=== PATIENT | male | born 1970 | race Caucasian/White ===

== ENCOUNTER 2016-12-25 08:16 | Emergency (ER) | payer MEDICARE, MEDICAID ==
[2016-12-25 08:31] VITALS: BP 131/73
--- NOTE | 2016-12-25 08:57 | UC ---
Respiratory Complaint HPI - HPI Summary HPI Summary: 46 yo male presents with one wk hx of cough/post nasal drip/sinus pressure and fatigue no f/c no CP or SOB no n/v/d - History of Current Complaint Chief Complaint: UCRespiratory Stated Complaint: COUGH Time Seen by Provider: 12/25/16 08:45 Hx Obtained From: Patient Onset/Duration: Gradual Onset, Lasting Days Timing: Constant Severity Initially: Mild Severity Currently: Moderate Pain Intensity: 2 Pain Scale Used: 0-10 Numeric Character: Cough: Nonproductive Aggravating Factors: Nothing Alleviating Factors: Nothing Associated Signs And Symptoms: Positive: Nasal Congestion, Sinus Discomfort - Allergies/Home Medications Allergies/Adverse Reactions: Allergies Allergy/AdvReac Type Severity Reaction Status Date / Time Loratadine [From Claritin] Allergy Severe Swelling Verified 12/05/15 16:46 Of Face,Lips,& Throat Home Medications: Home Medications celeCOXIB CAP* [Celebrex CAP*] 200 mg PO DAILY 12/25/16 [History Confirmed 12/25] PMH/Surg Hx/FS Hx/Imm Hx Previously Healthy: Yes - lupus/cerbral palsy Other History Of: Negative For: HIV, Hepatitis B, Hepatitis C, Anticoagulant Therapy - Surgical History Surgical History: Yes Surgery Procedure, Year, and Place: Leg surgery-strecthing hamstrings - Family History Known Family History: Positive: None, Hypertension, Diabetes - Social History Alcohol Use: None Substance Use Type: None Smoking Status (MU): Never Smoked Tobacco - Immunization History Most Recent Influenza Vaccination: Most Recent Tetanus Shot: 2010 Review of Systems Constitutional: Fatigue Skin: Negative Eyes: Negative ENT: Nasal Discharge, Sinus Congestion, Sinus Pain/Tenderness Respiratory: Cough Cardiovascular: Negative Gastrointestinal: Negative Genitourinary: Negative Motor: Negative Neurovascular: Negative Musculoskeletal: Negative Neurological: Negative Psychological: Negative Is Patient Immunocompromised?: No All Other Systems Reviewed And Are Negative: Yes Physical Exam Triage Information Reviewed: Yes Appearance: Well-Appearing, No Pain Distress, Well-Nourished Vital Signs: Initial Vital Signs Temp 98.1 F 12/25/16 08:26 Pulse 86 12/25/16 08:26 Resp 18 12/25/16 08:26 BP 131/73 12/25/16 08:26 Pulse Ox 98 12/25/16 08:26 Vital Signs Reviewed: Yes Eyes: Positive: Conjunctiva Clear ENT: Positive: Hearing grossly normal, Nasal congestion, Nasal drainage, TM bulging, Hoarse voice, Sinus tenderness, Uvula midline. Negative: TMs normal, TM dull, TM red, Tonsillar swelling, Tonsillar exudate, Muffled voice, Dental tenderness Neck: Positive: Supple, Nontender, No Lymphadenopathy Respiratory: Positive: Lungs clear, Normal breath sounds, No respiratory distress, No accessory muscle use Cardiovascular: Positive: RRR, No Murmur Musculoskeletal: Positive: Other: - using walker/atrophied LE with contractures Neurological: Positive: Alert Psychological Exam: Normal Skin Exam: Normal UC Diagnostic Evaluation - Laboratory O2 Sat by Pulse Oximetry: 98 Respiratory Course/Dx - Differential Dx/Diagnosis Provider Diagnoses: acute sinusitis Discharge - Discharge Plan Condition: Stable Disposition: HOME Prescriptions: Amoxicillin PO (*) [Amoxicillin 875 MG (*)] 875 mg PO BID #20 tab Patient Education Materials: Sinusitis (ED) Referrals: Clem Ang MD [Primary Care Provider] - 5 Days (if not better)
== END 2016-12-25 09:11 | disposition home or self-care (01) ==
LOC: UCEAST 08:16
DX: J01.90 Acute sinusitis, unspecified (principal)
CPT/HCPCS: 99211; G0463

== ENCOUNTER 2017-06-11 15:02 | Emergency (ER) | payer MEDICARE, MEDICAID ==
--- OUTSIDE RECORDS SUMMARY | 2017-06-11 15:20 | XMS REPORT ---
:1970 External Reference #:[id number] Author Organization [employer] Address [address] [address] Phone [phone] Care Team Providers Name Role Phone Clem Ang MD Care Team Information Cnc Mill Operator Unavailable Clem Ang MD Primary Care Physician Unavailable Payers Type Date Identification Numbers Payment Provider Subscriber Medicare Primary Policy Number: [id number] Medicare Gabriel Amezquita PayID: [id number] [address] [place] [address] [facility] Policy Number: [id number] Medicaid Gabriel Amezquita PayID: [id number] [address] [place] [address] Problems Description No Information Family History Date Family Member(s) Problem(s) Comments General Arthritis General GF had autoimmune issues Social History Type Date Description Comments ETOH Use Denies alcohol use Smoking Patient has never smoked Exercise Type/Frequency Exercises rarely Allergies, Adverse Reactions, Alerts Date Description Reaction Status Severity Comments 05/27/2016 Claritin active hives 05/27/2016 Zyrtec active ineffective Medications Medication Date Status Form Strength Qnty SIG Indications Ordering Provider Celebrex Active Capsules 200mg 180cap take one R76.0 Kendell 017 s capsule/tab Lily, let daily M.D. by mouth twice daily as needed for pain, avoid ibuprofen and other nsaids Multi Vitamin Active Tablets 1 a day Unknown 000 Vitamin D-3 Active Capsules 1000Unit 1 by mouth Unknown 000 every day Voltaren Hx Gel 1% 200uni apply 2 R76.0 Kendell 017 - ts grams twice Lily, daily as M.DVirgin[place] 017 needed for pain to the hands Diclofenac [address] 75mg take 1 R76.0 Unknown Sodium 000 - tablet twice a day 017 with food Vital Signs Date Vital Result Comment 05/21/2017 Height 67 inches 5'7" Weight 151.50 lb Heart Rate 82 /min BP Systolic Sitting 114 mmHg BP Diastolic Sitting 72 mmHg Respiratory Rate 14 /min Body Temperature 98.4 F Pain Level 0 BMI (Body Mass Index) 23.7 kg/m2 10/31/2016 Height 67 inches 5'7" Weight 152.00 lb Heart Rate 100 /min BP Systolic Sitting 130 mmHg BP Diastolic Sitting 86 mmHg Respiratory Rate 14 /min BMI (Body Mass Index) 23.8 kg/m2 06/27/2016 Height 67 inches 5'7" Heart Rate 76 /min BP Systolic Sitting 124 mmHg BP Diastolic Sitting 70 mmHg Respiratory Rate 14 /min 05/27/2016 Height 67 inches 5'7" Weight 141.00 lb Heart Rate 82 /min BP Systolic Sitting 121 mmHg BP Diastolic Sitting 71 mmHg Respiratory Rate 14 /min Body Temperature 98.1 F Pain Level 4 BMI (Body Mass Index) 22.1 kg/m2 Results Description No Information Procedures Description No Information Encounters Type Date Location Provider CPT E/M Dx Office Visit 10/31/2016 [facility] Bautista M.D. 76334 M06.4 3:20p Of Lani M17.0 Z79.899 M79.1 Office Visit 06/27/2016 3:20p [facility] Bautista 14617 R76.0 Lani Hunt M25.561 M25.562 M25.552 M25.551 Office Visit 05/27/2016 3:00p [facility] Bautista 33693 R76.0 Lani Hunt M79.1 R20.8 Z86.69 Plan of Care 05/21/2017 - Kendell Bautista M.D.M06.4 Inflammatory [id number] Other retirement (current) drug therapyFollow up:F/u in 1 year or sooner if needed
[2017-06-11 15:24] VITALS: BP 114/74
--- NOTE | 2017-06-11 15:59 | UC ---
Abdominal Pain Male HPI - HPI Summary HPI Summary: PT HERE ACCOMPANIED BY MOM. ONSET OF WATERY DIARRHEA AND VOMITING LAST NIGHT. NO RECENT RAVEL OR NEW FOODS. NO RECENT ANTIBIOTICS OR CHANGE IN MEDS. NO FEVER. HAS HAD SOME MILD SINUS CONGESTION PAST FEW DAYS. APPETITE IS DOWN. IS ABLE TO KEEP DOWN GINGERALE AND GATORADE. - History of Current Complaint Chief Complaint: UCGI Stated Complaint: VOMITING Time Seen by Provider: 06/11/17 15:40 Hx Obtained From: Patient, Family/Tree Surgeon - MOM Onset/Duration: Sudden Onset, Lasting Days - 1 DAY, Still Present Severity Initially: Moderate Severity Currently: Moderate Pain Intensity: 0 Pain Scale Used: 0-10 Numeric Location: Diffuse Radiates: No Character: Cramping Aggravating Factor(s): Food Alleviating Factor(s): Nothing Associated Signs And Symptoms: Positive: Decreased Appetite, Nausea, Vomiting, Diarrhea. Negative: Fever, Cough, Chest Pain, Back Pain, Constipation, Blood in Stool, Urinary Symptoms - Allergies/Home Medications Allergies/Adverse Reactions: Allergies Allergy/AdvReac Type Severity Reaction Status Date / Time loratadine [From Claritin] Allergy Swelling Verified 06/11/17 15:24 Of Face,Lips,& Throat PMH/Surg Hx/FS Hx/Imm Hx - Additional Past Medical History Additional PMH: CEREBRAL PALSY, LUPUS Other History Of: Negative For: HIV, Hepatitis B, Hepatitis C, Anticoagulant Therapy - Surgical History Surgical History: Yes Surgery Procedure, Year, and Place: Leg surgery-strecthing hamstrings - Family History Known Family History: Positive: Hypertension, Diabetes - Social History Alcohol Use: None Substance Use Type: None Smoking Status (MU): Never Smoked Tobacco - Immunization History Most Recent Influenza Vaccination: Most Recent Tetanus Shot: 2010 Review of Systems Constitutional: Negative Respiratory: Negative Cardiovascular: Negative Gastrointestinal: Vomiting, Diarrhea, Nausea Genitourinary: Negative All Other Systems Reviewed And Are Negative: Yes Physical Exam Triage Information Reviewed: Yes Appearance: Well-Appearing, No Pain Distress, Well-Nourished Vital Signs: Initial Vital Signs Temp 99.8 F 06/11/17 15:19 Pulse 115 06/11/17 15:19 Resp 20 06/11/17 15:19 BP 114/74 06/11/17 15:19 Pulse Ox 97 06/11/17 15:19 Vital Signs Reviewed: Yes Eyes: Positive: Conjunctiva Clear ENT: Positive: Hearing grossly normal Neck: Positive: Supple Respiratory Exam: Normal Cardiovascular Exam: Normal Abdomen Description: Positive: Nontender, Soft. Negative: Distended, Guarding Bowel Sounds: Positive: Present Musculoskeletal: Positive: No Edema Neurological: Positive: Alert Psychological: Positive: Normal Response To Family, Age Appropriate Behavior Skin: Negative: rashes Abd Pain Male Course/Dx - Differential Dx/Clinical Impression Provider Diagnoses: ACUTE GASTROENTERITIS Discharge - Sign-Out/Discharge Documenting (check all that apply): Discharge - Discharge Plan Condition: Stable Disposition: HOME Prescriptions: Ondansetron ODT TAB* [Zofran Odt TAB*] 4 mg PO Q6H PRN #20 tab.odt PRN Reason: Nausea/Vomiting Patient Education Materials: Gastroenteritis (ED) Referrals: Clem Ang MD [Primary Care Provider] - If Needed Additional Instructions: YOUR SYMPTOMS ARE CONSISTENT WITH AN ACUTE VIRAL GASTROENTERITIS AND WILL LIKELY RESOLVE OVER THE NEXT SEVERAL DAYS. ENSURE ADEQUATE HYDRATION. CLEAR LIQUIDS, BLAND DIET. AVOID CAFFEINE, DAIRY, GREASY, SPICY FOODS. ONCE YOU ARE TOLERATING CLEAR LIQUIDS YOU CAN ADVANCE TO SIMPLE, BLAND FOODS. GO TO [facility] WITHOUT [place] IF YOU ARE UNABLE TO KEEP DOWN ANYTHING BY MOUTH. SEEK REEVALUATION IF YOUR SYMPTOMS ARE NOT IMPROVING EXPECTED OVER THE NEXT 5 -7 DAYS. GASTROENTERITIS: You have gastroenteritis ("intestinal flu"). This disease is usually caused by a virus. There is no specific treatment. The disease will end by itself. For now, the main danger is dehydration. Give clear liquids. Examples include Pedialyte, Gatorade, clear broth, juices, flat sodas, and jello water. Medications may be prescribed by the physician for special cases. Once tolerated, the clear liquid diet may be supplemented with rice, cereal, toast, applesauce, or bananas. Call the physician or go to the hospital if vomiting increases or blood appears in the bowel movement or vomitus; if you fail to improve, or if signs of dehydration occur (tongue and mouth become dry, lethargy). - Billing Disposition and Condition Condition: STABLE Disposition: HOME
[2017-06-11] MEDS ORDERED: Ondansetron ODT TAB* 4 MG PO ONE (16:01)
== END 2017-06-11 16:10 | disposition home or self-care (01) ==
LOC: UCEAST 15:02
DX: K52.9 Noninfective gastroenteritis and colitis, unspecified (principal); G80.9 Cerebral palsy, unspecified; M32.9 Systemic lupus erythematosus, unspecified; Z88.8 Allergy status to other drugs, medicaments and biological substances
CPT/HCPCS: 99212; A9270-GY; G0463

== ENCOUNTER 2017-09-04 13:32 | Emergency (ER) | payer MEDICARE, MEDICAID ==
[2017-09-04 13:43] VITALS: BP 143/76
--- NOTE | 2017-09-04 13:45 | UC ---
Hand/Wrist HPI - HPI Summary HPI Summary: 47 yo male presents with right hand pain and swelling since last night. He lives at [facility] and is here with a senior linux unix administrator today. Pt is a poor historian , the bulk of the HPI is provided by the senior linux unix administrator with him today. Last night noticed right hand pain and swelling - applied ice with mild relief. This morning seems a little worse. Unknown if he was bitten by any insect or if he had an injury. - History Of Current Complaint Chief Complaint: UCUpperExtremity Stated Complaint: SWOLLEN HAND Time Seen by Provider: 09/04/17 13:45 Hx Obtained From: Patient Onset/Duration: Sudden Onset Severity Initially: Moderate Severity Currently: Moderate Pain Intensity: 6 Pain Scale Used: 0-10 Numeric - Allergies/Home Medications Allergies/Adverse Reactions: Allergies Allergy/AdvReac Type Severity Reaction Status Date / Time loratadine [From Claritin] Allergy Swelling Verified 09/04/17 13:43 Of Face,Lips,& Throat PMH/Surg Hx/FS Hx/Imm Hx - Additional Past Medical History Additional PMH: Disabled Previously Healthy: Yes Other History Of: Negative For: HIV, Hepatitis B, Hepatitis C, Anticoagulant Therapy - Surgical History Surgical History: Yes Surgery Procedure, Year, and Place: Leg surgery-strecthing hamstrings - Family History Known Family History: Positive: None, Hypertension, Diabetes - Social History Occupation: Disabled Lives: Assisted Living Alcohol Use: None Substance Use Type: None Smoking Status (MU): Never Smoked Tobacco - Immunization History Most Recent Influenza Vaccination: 2013/2014 Most Recent Tetanus Shot: 2010 Review of Systems Constitutional: Negative Skin: Negative Respiratory: Negative Cardiovascular: Negative Musculoskeletal: Other: - right hand pain Neurological: Negative Psychological: Negative All Other Systems Reviewed And Are Negative: Yes Physical Exam - Summary Physical Exam Summary: GENERAL: NAD. WDWN. No pain distress. SKIN: Right hand: Very mild erythema and edema about dorsal right hand. No streaking, bleeding, or drainage. NECK: Supple. Nontender. No lymphadenopathy. CHEST: No accessory muscle use. Breathing comfortably and in no distress. CV: Pulses intact MSK: RIGHT HAND and finger: Mild TTP over 3rd MCP. FROM. Strength 5/5 including mopper strength. NEURO: Alert. PSYCH: Age appropriate behavior. Triage Information Reviewed: Yes Vital Signs: Initial Vital Signs Temp 98.9 F 09/04/17 13:40 Pulse 89 09/04/17 13:40 Resp 18 09/04/17 13:40 BP 143/76 09/04/17 13:40 Pulse Ox 99 09/04/17 13:40 Hand/Wrist Course/Dx - Course Course Of Treatment: XR: IMPRESSION: No fracture of the right hand is noted. Suspect cellulitis - will place on keflex and advice RICE therapy. F/u if persists or worsens. - Differential Dx/Diagnosis Provider Diagnoses: Cellulitis right hand Discharge - Sign-Out/Discharge Documenting (check all that apply): Patient Departure - Discharge Plan Condition: Stable Disposition: HOME Prescriptions: Cephalexin CAP* [Keflex CAP*] 500 mg PO BID #14 cap Patient Education Materials: Cellulitis (ED) Referrals: Clem Ang MD [Primary Care Provider] - Additional Instructions: If you develop a fever, shortness of breath, chest pain, new or worsening symptoms - please call your PCP or go to the ED. Your blood pressure was slightly elevated at todays visit. Please see your primary provider within 4 weeks for recheck and re-evaluation. 1) Rest, elevate, and apply ice to the hand to reduce pain and swelling - Billing Disposition and Condition Condition: STABLE Disposition: Home
--- NOTE | 2017-09-04 14:15 | RAD ---
Indication: Right hand injury. 4 views of the right hand are reviewed. There is no fracture or dislocation. No other bone or joint pathology is identified. IMPRESSION: No fracture of the right hand is noted.
== END 2017-09-04 14:45 | disposition home or self-care (01) ==
LOC: UCEAST 13:32
DX: L03.113 Cellulitis of right upper limb (principal); Z88.8 Allergy status to other drugs, medicaments and biological substances
CPT/HCPCS: 99212; G0463

== ENCOUNTER 2019-03-22 16:41 | Emergency (ER) | payer MEDICARE, MEDICAID ==
[2019-03-22 17:35] VITALS: BP 140/87
--- NOTE | 2019-03-22 17:56 | UC ---
Throat Pain/Nasal Jordan HPI - HPI Summary HPI Summary: 48-year-old male comes in with chief complaint of upper respiratory tract infection symptoms and possible fever. More than a week ago patient had upper respiratory tract infection symptoms and over time they did improve. Today plan patient was at his daycare it was reported to the patient's mother that he had a fever. Patient does have special needs and is minimally verbal. They have been using bufp-aue-spoxuva medications. - History of Current Complaint Chief Complaint: UCRespiratory Stated Complaint: FEVER Time Seen by Provider: 03/22/19 17:42 Pain Intensity: 3 - Allergies/Home Medications Allergies/Adverse Reactions: Allergies Allergy/AdvReac Type Severity Reaction Status Date / Time loratadine [From Claritin] Allergy Swelling Verified 03/22/19 17:34 Of Face,Lips,& Throat Home Medications: Home Medications Chlorphenir/Phenyleph/Aspirin [Lizbeth-Imler Plus Cold Tab Eff] 1 dose PO ONCE PRN 03/22/19 [History Confirmed 03/22/19] PMH/Surg Hx/FS Hx/Imm Hx Previously Healthy: Yes - special needs, Other History Of: Negative For: HIV, Hepatitis B, Hepatitis C, Anticoagulant Therapy - Surgical History Surgical History: Yes Surgery Procedure, Year, and Place: Leg surgery-strecthing hamstrings - Family History Known Family History: Positive: None, Hypertension, Diabetes - Social History Alcohol Use: None Substance Use Type: None Smoking Status (MU): Never Smoked Tobacco - Immunization History Most Recent Influenza Vaccination: Most Recent Tetanus Shot: 2010 Review of Systems All Other Systems Reviewed And Are Negative: Yes Constitutional: Positive: Fever Skin: Positive: Negative Eyes: Positive: Negative ENT: Positive: Sore Throat, Ear Ache, Nasal Discharge, Sinus Congestion Respiratory: Positive: Cough Cardiovascular: Positive: Negative Gastrointestinal: Positive: Negative Motor: Positive: Negative Neurovascular: Positive: Negative Musculoskeletal: Positive: Negative Neurological: Positive: Negative Psychological: Positive: Negative Is Patient Immunocompromised?: No Physical Exam Triage Information Reviewed: Yes Appearance: Well-Appearing, No Pain Distress, Well-Nourished Vital Signs: Initial Vital Signs Temp 99.6 F 03/22/19 17:31 Pulse 93 03/22/19 17:31 Resp 18 03/22/19 17:31 BP 140/87 03/22/19 17:31 Pulse Ox 99 03/22/19 17:31 Vital Signs Reviewed: Yes Eye Exam: Normal Eyes: Positive: Conjunctiva Clear ENT: Positive: Pharyngeal erythema, Nasal congestion, Nasal drainage, TMs normal Neck: Positive: Supple Respiratory: Positive: Lungs clear, Normal breath sounds, No respiratory distress Cardiovascular: Positive: RRR Musculoskeletal: Positive: Strength Intact, ROM Intact Neurological: Positive: Alert, Muscle Tone Normal Psychological: Positive: Normal Response To Family Skin Exam: Normal Throat Pain/Nasal Course/Dx - Course Course Of Treatment: Overall the patient's symptoms been going on for 10 days and therefore we'll treat with amoxicillin. Will continue symptomatic treatment also. - Differential Dx/Diagnosis Provider Diagnosis: Sinusitis Discharge ED - Sign-Out/Discharge Documenting (check all that apply): Patient Departure All imaging exams completed and their final reports reviewed: No Studies - Discharge Plan Condition: Stable Disposition: HOME Prescriptions: Amoxicillin PO (*) [Amoxicillin 875 MG (*)] 875 mg PO BID #20 tab Patient Education Materials: Sinusitis (ED) Referrals: Clem Ang MD [Primary Care Provider] - Additional Instructions: FOLLOW UP WITH YOUR DOCTOR IF NOT COMPLETELY IMPROVED. GET REEVALUATED SOONER IF NOT IMPROVED OR WORSE OR ANY QUESTIONS OR CONCERNS. - Billing Disposition and Condition Condition: STABLE Disposition: Home
[2019-03-22 18:06] LABS: Influenza A Molecular NEGATIVE (Negative); Influenza B Molecular NEGATIVE (Negative)
== END 2019-03-22 18:16 | disposition home or self-care (01) ==
LOC: UCEAST 16:41
DX: J32.9 Chronic sinusitis, unspecified (principal); J39.2 Other diseases of pharynx; Z88.8 Allergy status to other drugs, medicaments and biological substances
CPT/HCPCS: 99212; G0463

== ENCOUNTER 2019-05-13 08:37 | Emergency (ER) | payer MEDICARE, MEDICAID ==
[2019-05-13 09:02] VITALS: BP 143/77
--- NOTE | 2019-05-13 09:13 | UC ---
Eye Complaint HPI - HPI Summary HPI Summary: CHIEF COMPLAINT: left eye redness HPI: This is a 49-year-old male with a history of cerebral palsy and lupus who complains of left skin and eye redness beginning this morning. The patient is cared for by his mother. They deny discharge or pain. Description of Pain:none. VITAL SIGNS REVIEWED. Within normal limits unless noted here. NURSES NOTE REVIEWED. "left eye swelling, when pt woke up this am left eye was swollen shut, redness noted around eye with swelling. sypmtoms started this am. no drainage noted per pt and mom. no drng noted at this assessment. per pt mom pt does have a non productive cough. pt has hx allergies. " - History of Current Complaint Chief Complaint: UCEye Stated Complaint: LEFT EYE SWELLING Time Seen by Provider: 05/13/19 09:04 Hx Obtained From: Patient Pain Intensity: 0 - Allergies/Home Medications Allergies/Adverse Reactions: Allergies Allergy/AdvReac Type Severity Reaction Status Date / Time loratadine [From Claritin] Allergy Swelling Verified 05/13/19 09:02 Of Face,Lips,& Throat Home Medications: Home Medications celeCOXIB CAP* [Celebrex CAP*] 200 mg PO DAILY 12/25/16 [History Confirmed 03/22] Erythromycin OPTH OINT* [Erythromycin 0.5% OPTH OINT*] 1 applic LEFT EYE TID #1 ophth.oint MDD 3 times a day 05/13/19 [Rx] Multivitamin [Multivitamins] 1 cap PO DAILY 05/13/19 [History Confirmed 05/13/19 ] PMH/Surg Hx/FS Hx/Imm Hx - Additional Past Medical History Additional PMH: PAST MEDICAL HISTORY- CHRONIC and RECURRENT HEALTH PROBLEM LIST REVIEWED. Information relevant to present complaint: cerebral palsy; lupus. VISIT HISTORY REVIEWED. MEDICATIONS & ALLERGIES REVIEWED. HYPERTENSION STATUS: no current treatment. FAMILY HISTORY: Positive for: cancer. SOCIAL HISTORY: Smoker: no Home: with mother Employment: none currently Previously Healthy: No Other History Of: Negative For: HIV, Hepatitis B, Hepatitis C, Anticoagulant Therapy - Surgical History Surgical History: Yes Surgery Procedure, Year, and Place: Leg surgery-strecthing hamstrings - Family History Known Family History: Positive: None, Hypertension, Diabetes - Social History Alcohol Use: None Substance Use Type: None Smoking Status (MU): Never Smoked Tobacco - Immunization History Most Recent Influenza Vaccination: Most Recent Tetanus Shot: 2010 Review of Systems All Other Systems Reviewed And Are Negative: Yes Eyes: Positive: Other - periorbital left eye redness Respiratory: Positive: Negative Cardiovascular: Positive: Negative Gastrointestinal: Positive: Negative Is Patient Immunocompromised?: No Physical Exam - Summary Physical Exam Summary: Appearance: The patient is well-appearing, is in no pain or distress, and is well-nourished. Eyes: Examination of the right eye is normal. Examination of the left eye shows slight scleral injection. There is mild chemosis of the lower lid. There is scaling rash over the lateral aspect of the zygoma on the left there is no evidence of cellulitis. There is no evidence of periorbital infection. Pupils are equal and reactive to light and accommodation. Extra ocular muscle movement is intact. ENT: The hearing is grossly normal, the pharynx is normal, and the TMs are normal. There is no muffled or hoarse voice. No stridor. Neck: The neck is supple and there is no lymphadenopathy. Respiratory: The chest is non-tender to palpation and without crepitus. The lungs are clear, there are normal breath sounds, and there is no respiratory distress. No wheezes, rales or rhonchi. Cardiovascular: Heart sounds reveal a regular rate and rhythm. There are no clicks, rubs or murmurs. There are no carotid bruits or thrills. Circulation is grossly intact. Abdomen: The abdomen is soft and nontender. There is no organomegaly. Bowel sounds are present and within normal limits. No point tenderness at McBurneys point. No CVA tenderness. Musculoskeletal: Strength is intact. The patient moves all extremities. Neurological: The patient is alert. Motor and sensory are examination grossly intact. Speech is normal. Psychological: The patient displays age appropriate behavior, and is conversant. GCS=15. Skin: Negative for rashes. Triage Information Reviewed: Yes Vital Signs: Initial Vital Signs Temp 98.9 F 05/13/19 08:54 Pulse 90 05/13/19 08:54 Resp 18 05/13/19 08:54 BP 143/77 05/13/19 08:54 Pulse Ox 98 05/13/19 08:54 Vital Signs Reviewed: Yes Eye Complaint Course/Dx - Course Course Of Treatment: This is a 49-year-old male with a history of cerebral palsy and lupus who complains of left skin and eye redness beginning this morning. The patient is cared for by his mother. They deny discharge or pain. Physical examination shows slightly injected left sclera. The skin to the lateral aspect of the left eye is slightly scaly that would be consistent with a seborrheic dermatitis or a mild localized skin irritation or contact dermatitis. I discussed these conditions with the patient's mother. I will start him on erythromycin ointment for a possible early conjunctivitis because of the history of discharge reported by the mother. I also recommend that they use 1% hydrocortisone cream twice a day for 5-7 days to the area of skin near the left eye and that the patient is careful about putting any irritants on the skin. The patient's mother voiced understanding of the diagnosis and treatment instructions. - Differential Dx/Diagnosis Differential Diagnosis/HQI/PQRI: Conjunctivitis, Orbital Cellulitis, Other - contact dermatitis Provider Diagnosis: Conjunctivitis, Contact dermatitis Discharge ED - Sign-Out/Discharge Documenting (check all that apply): Patient Departure All imaging exams completed and their final reports reviewed: No Studies - Discharge Plan Condition: Stable Disposition: HOME Prescriptions: Erythromycin OPTH OINT* [Erythromycin 0.5% OPTH OINT*] 1 applic LEFT EYE TID #1 ophth.oint MDD 3 times a day Referrals: Clem Ang MD [Primary Care Provider] - Additional Instructions: WE DISCUSSED: PLEASE SEEK CARE AT THE EMERGENCY DEPARTMENT IF SYMPTOMS WORSEN OR IF NEW SYMPTOMS DEVELOP. FOLLOW UP WITH YOUR PRIMARY CARE PHYSICIAN IF CONDITION CONTINUES BEYOND 3 DAYS WITHOUT IMPROVEMENT. YOUR DIAGNOSIS IS:left eye conjunctivitis; localized skin irritation or contact dermatitis of the face. YOUR PRESCRIPTION RECOMMENDATION IS:erythromycin ophthalmic ointment.years 3 times a day for 5-7 days; Stop if eye suddenly becomes red; recheck if your eye is not better in 5 days or any time if it's getting worse. OTHER INSTRUCTIONS:use hydrocortisone cream 1% to the area of skin near the eye. Avoid any irritants. Use twice a day for 3-7 days or whenever you notice irritation. Hypertension Discharge Instructions: Your blood pressure reading today was 143/77, indicating HYPERTENSION. Follow- up with your primary care provider within 4 weeks for blood pressure check and appropriate recommendations and treatment, as needed. FOR PAIN AND/OR SLEEP: For pain: Ibuprofen (Motrin and other brand names) 400-600mg PLUS acetaminophen (Tylenol and other brand names) 500mg - 1000mg every 8 hours. - Billing Disposition and Condition Condition: STABLE Disposition: Home
== END 2019-05-13 09:42 | disposition home or self-care (01) ==
LOC: UCEAST 08:37
DX: H10.32 Unspecified acute conjunctivitis, left eye (principal); L25.9 Unspecified contact dermatitis, unspecified cause; Z88.8 Allergy status to other drugs, medicaments and biological substances; G80.9 Cerebral palsy, unspecified; M32.9 Systemic lupus erythematosus, unspecified
CPT/HCPCS: 99212; G0463